=== PATIENT | male | born 1995 | race Asian ===

== ENCOUNTER 2018-06-06 09:18 | Emergency (ER) | payer OTHER ==
[~2018-06-06] VITALS: Ht 193 cm; Wt 86.2 kg
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
[2018-06-06] MEDS ORDERED: HYDROMORPHONE 1 MG/1 ML DISP.SYRIN ONE (09:47)
[2018-06-06] MEDS ORDERED: ONDANSETRON HCL/PF 4 MG/2 ML VIAL ONE ×2 (09:47→11:35)
[2018-06-06] MEDS ORDERED: ONDANSETRON HCL/PF 4 MG/2 ML VIAL IVP ONE (10:00)
[2018-06-06] MEDS ORDERED: HYDROMORPHONE INJ 2 MG/ML DISP.SYRIN IV ONE (10:00)
[2018-06-06] MEDS ORDERED: IV NS 0.9% 1,000 ML BAG IV ONE (10:00)
[2018-06-06 10:15] LABS: BASOPHILS # (AUTO) 0.1 /CMM (0.0-0.2); BASOPHILS % (AUTO) 0.8 % (0.0-2.0); HEMATOCRIT 45 % (39-51); HEMOGLOBIN 14.8 g/dL (13.5-17.5); LYMPHOCYTES # (AUTO) 2.1 /CMM (0.8-4.8); LYMPHOCYTES % (AUTO) 28.1 % (20.0-44.0); MEAN CORPUSCULAR HEMOGLOBIN 28 PG (26.0-33.0); MEAN CORPUSCULAR HGB CONC 33 g/dl (31.0-36.0); MEAN CORPUSCULAR VOLUME 86 fL (80-96); MONOCYTES # (AUTO) 0.4 /CMM (0.1-1.30); MONOCYTES % (AUTO) 5.1 % (2.0-12.0); NEUTROPHILS # (AUTO) 4.9 /CMM (1.8-8.9); PLATELET COUNT (AUTO) 273 /CMM (150-450); RDW COEFFICIENT OF VARIATION 13.1 (11.5-15.0); RED BLOOD CELL COUNT(AUTO) 5.24 MIL/uL (4.5-6.0); WHITE BLOOD COUNT (AUTO) 7.6 K/uL (4.3-11.0)
--- NOTE | 2018-06-06 10:16 | NUR ---
PT WAS TAKEN TO CT
[2018-06-06 10:32] LABS: CALCIUM, SERUM 9.1 mg/dL (8.5-10.1); POTASSIUM 4.2 mmol/L (3.5-5.1)
[2018-06-06 10:37] LABS: ALBUMIN 3.8 g/dL (3.4-5.0); BILIRUBIN,DIRECT 0.1 mg/dL (0.0-0.2); BILIRUBIN,TOTAL 0.3 mg/dL (0.2-1.0); INR 0.96 (0.87-1.13); TOTAL PROTEIN, SERUM 7.6 g/dL (6.4-8.2)
--- NOTE | 2018-06-06 10:48 | NUR ---
PT IS BACK FROM CT
[2018-06-06] MEDS ORDERED: MORPHINE SULFATE INJ 2 MG/ML DISP.SYRIN IV ONE (11:30)
[2018-06-06] MEDS ORDERED: ONDANSETRON HCL/PF 4 MG/2 ML VIAL IV ONE (11:30)
[2018-06-06] MEDS ORDERED: MORPHINE SULFATE INJ 4 MG/ML DISP.SYRIN ONE (11:35)
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
--- NOTE | 2018-06-06 11:53 | NUR ---
CALLED [facility] SPOKE WITH MARIELLA TO PRESENT CASE. SHE WAS ABLE TO TRANSFER THE CALL TO THE TRAUMA SURGEON DR RAPP, ON THE PHONE WITH DR RIVERA.
--- NOTE | 2018-06-06 12:34 | NUR ---
REPORT GIVEN TO JAZZY LESTER AT [facility]
--- NOTE | 2018-06-06 12:35 | NUR ---
CALLED [facility] FOR TRANSPORT ETA OF 25MINS WAS GIVEN. TRIP#[id number]
[2018-06-06 13:00] VITALS: BP 112/68
--- NOTE | 2018-06-06 13:20 | NUR ---
PATIENT TRANSPOPRTED TO [place]. VSS
== END 2018-06-06 13:20 ==
LOC: ER 09:20
DX: S32.010A Wedge compression fracture of first lumbar vertebra, initial encounter for closed fracture (principal); S30.0XXA Contusion of lower back and pelvis, initial encounter; S50.311A Abrasion of right elbow, initial encounter; F17.200 Nicotine dependence, unspecified, uncomplicated; V49.59XA Passenger injured in collision with other motor vehicles in traffic accident, initial encounter; Y93.89 Activity, other specified; Y92.410 Unspecified street and highway as the place of occurrence of the external cause; Y99.8 Other external cause status
CPT/HCPCS: 36415; 70450; 71260; 72125; 72131; 74177; 80048; 80076; 83690; 85025; 85730; 96374; 96375; 96376; 99291; A4606; J1170; J2270; J2405 ×2; J7030; Z7610